=== PATIENT | male | born 1950 | race Caucasian/White ===

== ENCOUNTER 2017-08-26 13:26 | Emergency (ER) | payer MEDICARE, OTHER ==
[2017-08-26] MEDS: KETOROLAC 30 MG/ML VIAL (J1885) IM (14:01)
== END 2017-08-26 15:15 | disposition home or self-care (01) ==
LOC: M ED 13:26
DX: S30.0XXA Contusion of lower back and pelvis, initial encounter (principal); W00.9XXA Unspecified fall due to ice and snow, initial encounter; Y92.9 Unspecified place or not applicable; Y93.9 Activity, unspecified; M51.36 Other intervertebral disc degeneration, lumbar region; E78.00 Pure hypercholesterolemia, unspecified; I10 Essential (primary) hypertension; F41.9 Anxiety disorder, unspecified; F32.9 Major depressive disorder, single episode, unspecified; F43.10 Post-traumatic stress disorder, unspecified
CPT/HCPCS: J1885

== ENCOUNTER 2021-03-31 17:34 | Emergency (ER) | payer MEDICARE ==
[~2021-03-31] VITALS: Ht 165.1 cm; Wt 76.8 kg
[~2021-03-31 17:34] MED LIST: ALPR0.5T3 PO; AMIT25TA17; AMLO1TAB24; BYST5TAB PO; CRES5TAB PO; DOXE1CAP8 PO; IBUP-1022 PO; LYRI20SO PO; METO50TA7; OLAN5TAB GT; PRAV40TA2; TRAZ50TA2 PO; TYLE325T5 PO
[2021-03-31 17:35] VITALS: BP 155/75
== END 2021-03-31 22:36 | disposition left against medical advice (07) ==
LOC: M ED 17:34
DX: Z53.21 Procedure and treatment not carried out due to patient leaving prior to being seen by health care provider (principal)

== ENCOUNTER 2021-07-14 21:53 | Observation (INO) | payer MEDICARE ==
[~2021-07-14] VITALS: Ht 165.1 cm; Wt 78.1 kg
[2021-07-14 22:14] LABS: HEMATOCRIT 41.2 % (42.0-52.0); HEMOGLOBIN 13.1 g/dl (13.5-17.5); MEAN CORPUSCULAR HGB CONC 31.8 g/dl (32.0-36.5); MEAN CORPUSCULAR VOLUME 84.8 fl (80.0-96.0); PLATELET COUNT, AUTOMATED 241 10^3/uL (150-450); RED BLOOD COUNT 4.86 10^6/uL (4.30-6.10); WHITE BLOOD COUNT 11.2 10^3/uL (4.0-10.0)
[2021-07-14 22:44] LABS: CK-MB VALUE MASS 8.4 NG/ML (<3.6); MB/CK RELATIVE INDEX 3.49 (< OR =4)
[2021-07-14 22:49] LABS: ALBUMIN 3.6 GM/DL (3.2-5.2); BILIRUBIN,DIRECT 0.1 MG/DL (0.0-0.2); BILIRUBIN,TOTAL 0.3 MG/DL (0.2-1.0); CALCIUM LEVEL 8.3 MG/DL (8.8-10.2); CREATININE FOR GFR 1.89 MG/DL (0.70-1.30); FREE T4 0.88 NG/DL (0.76-1.46); GLOMERULAR FILTRATION RATE 37.6 (>42); MAGNESIUM LEVEL 1.4 MG/DL (1.8-2.4); PHOSPHORUS LEVEL 3.5 MG/DL (2.5-4.9); POTASSIUM SERUM 4.6 MEQ/L (3.5-5.1); THYROID STIMULATING HORMONE 2.09 uIU/ML (0.358-3.740); TOTAL PROTEIN 6.6 GM/DL (6.4-8.2)
[2021-07-14] MEDS ORDERED: MAGNESIUM OXIDE 400MG TAB (MAG-OX) PO ONE (23:10)
--- NOTE | 2021-07-14 23:16 | REPVR ---
PROCEDURE INFORMATION: Exam: XR Chest Exam date and time: 07/14/2021 10:00 PM Age: 70 years old Clinical indication: Other: Chest pain TECHNIQUE: Imaging protocol: XR of the chest. Views: 1 view. COMPARISON: No relevant prior studies available. FINDINGS: Lungs: Unremarkable. No consolidation. Pleural spaces: Unremarkable. No pleural effusion. No pneumothorax. Heart/Mediastinum: Unremarkable. No cardiomegaly. Vasculature: Aortic calcification. Bones/joints: Osteopenia. There are degenerative changes involving the spine. IMPRESSION: No acute cardiopulmonary process. Electronically signed by: Greg Quarles On 07/14/2021 23:15:40 PM
[2021-07-14 23:19] LABS: ATYPICAL LYMPH 2 % (0-5); BASOPHILS 1 % (0-1); EOSINOPHILS 5 % (0-3); LYMPHOCYTES 20 % (16-44); MONOCYTES 5 % (0-5); NEUTROPHILS 67 % (28-66); PLATELET ESTIMATE NORMAL (NORMAL)
[2021-07-15] MEDS ORDERED: METOPROLOL TART 25 MG TABLET PO STA (00:12)
[2021-07-15] MEDS ORDERED: DOXY100C3 PO (00:15)
[2021-07-15] MEDS ORDERED: AMLO1TAB24 PO (00:15)
[2021-07-15] MEDS ORDERED: PRAV40TA2 PO (00:15)
[2021-07-15] MEDS ORDERED: METO50TA7 PO (00:15)
[2021-07-15] MEDS ORDERED: AMIT25TA17 PO (00:15)
[2021-07-15] MEDS ORDERED: DOXY100T PO (00:15)
[2021-07-15] MEDS ORDERED: MAG SULF 1GM/100ML (MAG RUN) 1 GM in IV 1 EA IV ONE (00:15)
[2021-07-15] MEDS ORDERED: HYDR-4517 PO (00:16)
[2021-07-15] MEDS ORDERED: HOME MED LIST COMPLETE! XX SCH (00:20)
[2021-07-15] MEDS: NS 1,000 ML IV SCH ×2 (00:33→14:01)
--- NOTE | 2021-07-15 00:38 | HPEPDOC ---
General Date of Admission Date of Service: Jul 14, 2021 Chief Complaint Heaviness in the chest Source: Patient History of Present Illness Mr. Rose, a 70-year-old gentleman was in his usual state of health until yesterday afternoon. At about 5 PM, he started munching on potato chips with salt. A large bag full of potato chips were consumed until he was having heaviness in the chest at about 6 PM. Thereafter, he called his daughter who came to see him. Daughter noted that patient had high heart rate. EMS, on arrival, noted supraventricular tachycardia on EKG. He was given 6 mg of adenosine with which there was no response. He responded to 12 mg advancing in the field with conversion to normal sinus rhythm. He states that the heaviness in the chest disappeared later but it lasted for about an hour prior to EMS arrival. He does not have past history of coronary artery disease. He does not use aspirin. He has had a history of cerebrovascular event when he was young. He does not abuse tobacco or alcohol. He does not have past history of supraventricular tachycardia or any other tachyarrhythmia. He does not have cough, shortness of breath, leg swelling, hemoptysis, abdominal pain, nausea, vomiting, diarrhea, blood in the stool, black stools, burning in the urine, frequency of micturition, blood in the urine, skin rash, joint pains, blurry vision, weakness of extremities, dizziness or lightheadedness, symptoms of cold or sore throat. Home Medications Scheduled Amitriptyline HCl (Amitriptyline HCl) 25 Mg Tablet, 50 MG PO QHS, (Reported) Amlodipine Besylate (Amlodipine Besylate) 5 Mg Tablet, 5 MG PO DAILY, (Reported) Doxycycline Hyclate (Doxycycline Hyclate) 100 Mg Capsule, 100 MG PO DAILY, (Reported) Metoprolol Tartrate (Metoprolol Tartrate) 50 Mg Tablet, 50 MG PO BID, (Reported) Pravastatin Sodium (Pravastatin Sodium) 40 Mg Tablet, 40 MG PO DAILY, (Reported) Scheduled PRN Hydrocodone/Acetaminophen (Hydrocodone-Acetamin 10-325 mg) 1 Each Tablet, 1 TAB PO Q4H PRN for MODERATE/SEVERE PAIN (PS 5-10), (Reported) Allergies Coded Allergies: No Known Allergies (Unverified , 03/31/21) Past Medical History Medical History Hypertension Surgical History None Family History No history of premature coronary artery disease in the family Social History * Smoker: Denies Drugs: other (He uses marijuana intermittently.) A-FIB/CHADSVASC A-FIB History Current/History of A-Fib/PAF?: No Current PO Anticoag Therapy: No Review of Systems Other systems Review of systems: 10 system review negative except as mentioned in history of present illness. Physical Examination General Exam: Negative: Alert, Cooperative, No Acute Distress, Mild Distress, Moderate Distress, Severe Distress, Other Eye Exam: Negative: PERRLA, Conjunctiva & lids normal, EOMI, Sclera icteric, Ptosis, Other Eye Symptoms ENT Exam: Negative: Atraumatic, Mucous membr. moist/pink, Pharynx Normal, Tongue Midline, Pharyngeal Edema, Nares Patent, Tympanic Membranes Normal, Ext Auditory Canal Nml, Pinna Normal, Other ENT Neck Exam: Negative: Supple, JVD, thyromegaly, +2 carotid pulse wo bruit, Lymphadenopathy, Other Chest Exam: Negative: Clear to auscultation, Normal air movement, Rales, Rhonchi, Wheezing, Diminished, Other Heart Exam: Positive: Tachycardic, Normal S1, Normal S2 Abdomen Exam: Negative: Normal bowel sounds, BS Hyperactive, BS Hypoactive, Soft, Tenderness, Hepatospenomegaly, Mass, Hernia, Other Extremity Exam: Negative: Clubbing, Cyanosis, Edema, Normal pulses, Tenderness, Swelling, Other Skin Exam: Negative: Nl turgor and temperature, Rash, Breakdown, Lesion, Pruritus, Other skin issue Neuro Exam: Negative: Normal Gait, Normal Speech, Strength at 5/5 X4 ext, Normal Tone, Sensation Intact, Cranial Nerves 3-12 NL, Reflexes 2+, Other Psych Exam: Negative: Mental status NL, Mood NL, Anxiety, Memory Intact, Oriented x 3, Other Vital Signs Vital Signs Date Time Temp Pulse Resp B/P (MAP) Pulse Ox O2 Delivery O2 Flow Rate FiO2 07/14/21 22:04 97.9 108 29 151/106 (121) 95 Room Air Laboratory Data Labs 24H Laboratory Tests 2 07/14/21 22:09: Neutrophils (%) (Auto) , Nucleated Red Blood Cells % (auto) 0.0, Neutrophils 67H, Lymphocytes (Manual) 20, Monocytes (Manual) 5, Eosinophils (Manual) 5H, Basophils (Manual) 1, Atypical Lymphocytes 2, Platelet Estimate NORMAL, Anion Gap 8, Glomerular Filtration Rate 37.6L, Calcium Level 8.3L, Phosphorus Level 3.5, Magnesium Level 1.4L, Total Bilirubin 0.3, Direct Bilirubin 0.1, Aspartate Amino Transf (AST/SGOT) 47H, Alanine Aminotransferase (ALT/SGPT) 47, Alkaline Phosphatase 95, Total Creatine Kinase 241, Creatine Kinase MB 8.4H, Creatine Kinase MB Relative Index 3.49, Troponin I High Sensitivity 37.0, Total Protein 6.6, Albumin 3.6, Albumin/Globulin Ratio 1.2, Lipase 165, Thyroid Stimulating Hormone (TSH) 2.090, Free Thyroxine 0.88 CBC/BMP Laboratory Tests 07/14/21 22:09 Assessment/Plan Supraventricular tachycardia Episode probably provoked by large salt load in the form of consumption of bagful of potato chips. Responded to 6 +12 mg of adenosine in the field. Sinus tachycardia in the emergency department. EKG: No delta waves. No past history of SVT. Discussed with cardiology: To be started on metoprolol now. Continuous telemetry monitoring at present. Magnesium to be replenished. Acute kidney injury Baseline creatinine not available. Current creatinine of 1.89 possibly new increase. Continuous IV fluid at modest rate at present. Kidney function to be monitored. Hypomagnesemia Magnesium sulfate were administered parenterally and orally. Hypertension Metoprolol to continue. DVT prophylaxis [Low risk] Coronavirus screening SARS COV 2 PCR test ordered. CPR status Full code Plan / VTE VTE Prophylaxis Ordered?: No VTE Exclusion Mechanical Proph: Low Risk for VTE VTE Exclusion Pharmacological: At Low Risk for VTE Kiko Concepcion Jul 15, 2021 00:38
[2021-07-15] MEDS ORDERED: LORazepam 2 MG/ML VIAL IV STA (02:51)
[2021-07-15] MEDS ORDERED: LORazepam 2 MG/ML VIAL As Ordered ONE (03:09)
[2021-07-15 03:13] LABS: RSV AMPLIFICATION NEGATIVE (NEGATIVE)
--- NOTE | 2021-07-15 06:44 | ECGEPIP ---
[facility] - ED Test Date: 2021-07-14 Pat Name: SAJAN AMADO Department: Room: 0102 Gender: Male [employer] Operator: KIET : 1950 Requested By: BEV Grace Order Number: [id number] Reading MD: Zackary Nicole Measurements Intervals Neon Rate: 106 P: 15 SC: 98 QRS: -23 QRSD: 86 T: 55 QT: 326 QTc: 433 Interpretive Statements Sinus tachycardia with short SC Septal infarct , age undetermined NO PRIORS FOR COMPARISON Electronically Signed on 07-15-2021 6:44:14 EST by Zackary Nicole
[2021-07-15 07:31] LABS: CALCIUM LEVEL 8.5 MG/DL (8.8-10.2); CREATININE FOR GFR 1.44 MG/DL (0.70-1.30); GLOMERULAR FILTRATION RATE 51.5 (>42); MAGNESIUM LEVEL 2.1 MG/DL (1.8-2.4); POTASSIUM SERUM 4.6 MEQ/L (3.5-5.1)
[2021-07-15] MEDS ORDERED: METOPROLOL TART 50 MG TAB PO SCH (09:00)
--- NOTE | 2021-07-15 14:41 | REP ---
INDICATION: renal failure. COMPARISON: None. TECHNIQUE: Real-time sonographic evaluation of the kidneys is performed. FINDINGS: Renal cortical echotexture is somewhat increased suggesting medical renal disease. There is no hydronephrosis bilaterally. There is a hypoechoic nodular area along the mid right renal cortex 1.5 cm in diameter with an internal echogenic focus. This could represent a solid nodule. There is a cystic structure in the mid left kidney with an internal echogenic focus. This measures 1.4 cm. The right kidney measures 10.6 x 5.2 x 6.0 cm. Left renal dimensions are 11.7 x 4.7 x 5.8 cm. The urinary bladder is unremarkable. IMPRESSION: Increased cortical echotexture bilaterally. No hydronephrosis bilaterally. Possible solid mid right renal nodule, with a possible small internal calcification, measuring 1.5 cm in diameter. There appears to be a mid left renal cyst 1.4 cm containing a small calcification. <Electronically signed by Rod Alarcon > 07/15/21 [id number]
[2021-07-15 16:25] VITALS: BP 134/82
--- NOTE | 2021-07-15 23:01 | DSES ---
DISCHARGE SUMMARY DATE OF ADMISSION: 07/14/2021 DATE OF DISCHARGE: 07/15/2021 PRIMARY DISCHARGE DIAGNOSIS: 1. Supraventricular tachycardia. 2. Acute on chronic kidney injury with baseline creatinine of 1.3 to 1.5, chronic kidney disease stage III. 3. Hypertension. 4. Dyslipidemia. DISCHARGE MEDICATIONS: Metoprolol 50 mg twice a day, pravastatin 40 mg daily, doxycycline 100 mg daily, Norvasc 5 mg daily, nortriptyline 50 mg every night at bedtime. DISCHARGE INSTRUCTIONS: Follow up with primary care physician within five days. The patient is to have a referral to an watch inspector final movement in [place] and workers' compensation claims supervisor in [place] regarding supraventricular tachycardia (SVT) for further evaluation. Avoid nonsteroidal anti-inflammatories due to recent acute kidney injury. Creatinine has improved with IV fluids to 1.44. HOSPITAL COURSE: This is a 70-year-old male with a history of hypertension, chronic kidney disease, stage III, baseline creatinine 1.3 to 1.5, was in his usual state of health until he had some potato chips at home and then complained of palpitations, lightheadedness and dizziness and substernal chest pain. The patient denied any lower extremity pain, pleuritic chest pain, nausea, vomiting or diarrhea. In the emergency room, he was found to have supraventricular tachycardia and was given on the field one dose of 6 mg of adenosine with no improvement, an additional 12 mg on arrival to the emergency room. Electrocardiogram (EKG) had no delta waves. He was in sinus tachycardia. This was discussed with cardiology and the patient was started on metoprolol 50 mg twice a day which resulted in improvement his tachycardia to ventricular rate of 72 to 86. The patient's blood pressure was well maintained with mean arterial pressure greater than 90, at the bedside is 102 MAP. The patient is asymptomatic, no complaints of chest pain, pressure or tightness, lightheadedness or dizziness. He was given intravenous fluids at 75 mL an hour with resultant improvement in creatinine from 1.8 to 1.44, which is his baseline. Glomerular filtration rate (GFR) is 51.5, remains at stage III renal failure. Chest x-ray 07/15/2021 showed no acute cardiopulmonary process. Renal ultrasound pending official report. The patient is otherwise medically stable for discharge with recommendations to be referred to electrophysiology regarding supraventricular tachycardia for possible ablation. The patient has had no syncopal episode to suggest need for Holter monitor or [facility] monitor as outpatient. PHYSICAL EXAMINATION ON DISCHARGE: Temperature 97.8, pulse 86, respiratory rate 19, blood pressure 133/87, 97% on room air. General: The patient is awake, alert and oriented to person, place and time answering questions appropriately. No cyanosis. Speaks in full sentences. Disheveled with dry mucous membranes. No jugular venous distention (JVD), thyromegaly or cervical lymphadenopathy. He does not have any stridor on examination. Lungs are clear to auscultation without wheezes, rales or rhonchi. Air entry is equal. Inspiratory and expiratory ratio 1:2 with no adventitious breath sounds. Heart: S1, S2, nondisplaced PMI. No S3. No murmurs noted. No heaves. Abdomen is obese, nontender and non-distended. Positive bowel sounds. Extremities: No cyanosis, clubbing or pitting edema. Neurologically, awake, alert and oriented. Motor functions 5/5 in all four extremities with no paresthesias or sensory disturbance. Gait was not tested. LABORATORY DATA: Microbiology and imaging studies have been reviewed. Time spent on discharge 30 minutes.
== END 2021-07-15 17:20 | disposition home or self-care (01) ==
LOC: M ED 21:53 → M ED INP 21:54
PROVIDERS: ADMIT Internal Medicine; ATTEND Internal Medicine
DX: I47.1 Supraventricular tachycardia (principal); N17.9 Acute kidney failure, unspecified; N18.30 Chronic kidney disease, stage 3 unspecified; I12.9 Hypertensive chronic kidney disease with stage 1 through stage 4 chronic kidney disease, or unspecified chronic kidney disease; E78.5 Hyperlipidemia, unspecified; E83.42 Hypomagnesemia; Z79.899 Other long term (current) drug therapy
CPT/HCPCS: 36415; 71045; 76775; 80048; 80076; 82550; 82553; 83690; 83735; 84100; 84439; 84443; 84484; 85025; 87631; 93005; 93041; 94760; 96374; 96375; 96376; 99285; G0378; J2060; J3475

== ENCOUNTER 2021-12-25 00:51 | Emergency (ER) | payer MEDICARE ==
[~2021-12-25] VITALS: Ht 165.1 cm; Wt 74.9 kg
[~2021-12-25 00:51] MED LIST changes: +AMIT25TA17 PO; +AMLO1TAB24 PO; +DOXY100C3 PO; +DOXY100T PO; +HYDR-4517 PO; +METO50TA7 PO; +PRAV40TA2 PO
[2021-12-25 01:29] LABS: BASO % 0.3 % (0.0-1.0); EOS # 0.3 10^3/uL (0.0-0.5); EOS % 3.2 % (0.0-3.0); HEMOGLOBIN 15.9 g/dl (13.5-17.5); LYMPH % 30.1 % (24.0-44.0); MEAN CORPUSCULAR HEMOGLOBIN 28.1 pg (27.0-33.0); MEAN CORPUSCULAR HGB CONC 33.1 g/dl (32.0-36.5); MONO # 1.1 10^3/uL (0.0-0.8); MONO % 10.7 % (2.0-8.0); NEUTROPHILS # 5.4 10^3/uL (1.5-8.5); NEUTROPHILS % 55.4 % (36.0-66.0); PLATELET COUNT, AUTOMATED 165 10^3/uL (150-450); RED BLOOD COUNT 5.65 10^6/uL (4.30-6.10); WHITE BLOOD COUNT 9.8 10^3/uL (4.0-10.0)
[2021-12-25 02:03] LABS: CK-MB VALUE MASS 2.2 NG/ML (<3.6); MB/CK RELATIVE INDEX 2.04 (< OR =4)
[2021-12-25 02:07] LABS: CALCIUM LEVEL 9.5 MG/DL (8.8-10.2); CREATININE FOR GFR 1.37 MG/DL (0.70-1.30); FREE T4 0.81 NG/DL (0.76-1.46); GLOMERULAR FILTRATION RATE 54.4 (>42); MAGNESIUM LEVEL 2.1 MG/DL (1.8-2.4); POTASSIUM SERUM 3.8 MEQ/L (3.5-5.1); THYROID STIMULATING HORMONE 7.31 uIU/ML (0.358-3.740)
[2021-12-25 02:15] VITALS: BP 135/77
== END 2021-12-25 02:37 | disposition left against medical advice (07) ==
LOC: M ED 00:51
DX: R07.9 Chest pain, unspecified (principal); R94.31 Abnormal electrocardiogram [ECG] [EKG]; I10 Essential (primary) hypertension; E78.5 Hyperlipidemia, unspecified; Z79.899 Other long term (current) drug therapy; Z53.21 Procedure and treatment not carried out due to patient leaving prior to being seen by health care provider

== ENCOUNTER 2022-01-02 07:24 | Emergency (ER) | payer MEDICARE ==
[~2022-01-02] VITALS: Ht 170.2 cm; Wt 75.0 kg
[2022-01-02] MEDS ORDERED: ASPIRIN 81 MG CHEW TABLET PO ONE (07:55)
[2022-01-02] MEDS ORDERED: METOPROLOL TART 50 MG TAB PO ONE (07:55)
[2022-01-02 08:26] LABS: BASO % 0.2 % (0.0-1.0); EOS # 0.2 10^3/uL (0.0-0.5); HEMATOCRIT 39.9 % (42.0-52.0); HEMOGLOBIN 13.2 g/dl (13.5-17.5); LYMPH # 1.1 10^3/uL (1.5-5.0); LYMPH % 13.3 % (24.0-44.0); MEAN CORPUSCULAR HGB CONC 33.1 g/dl (32.0-36.5); MEAN CORPUSCULAR VOLUME 84.7 fl (80.0-96.0); MONO # 0.6 10^3/uL (0.0-0.8); MONO % 7.3 % (2.0-8.0); NEUTROPHILS # 6.2 10^3/uL (1.5-8.5); NEUTROPHILS % 76.7 % (36.0-66.0); PLATELET COUNT, AUTOMATED 136 10^3/uL (150-450); RED BLOOD COUNT 4.71 10^6/uL (4.30-6.10); WHITE BLOOD COUNT 8.1 10^3/uL (4.0-10.0)
[2022-01-02 08:37] LABS: INR 0.9; PROTHROMBIN TIME 12.6 SECONDS (12.7-14.5)
[2022-01-02 08:38] LABS: PARTIAL THROMBOPLASTIN TIME 23.2 SECONDS (25.9-37.0)
[2022-01-02 08:56] LABS: CK-MB VALUE MASS 2.4 NG/ML (<3.6); MB/CK RELATIVE INDEX 4.07 (< OR =4)
[2022-01-02 08:58] LABS: RSV AMPLIFICATION NEGATIVE (NEGATIVE)
[2022-01-02 09:02] LABS: ALBUMIN 3.3 GM/DL (3.2-5.2); BILIRUBIN,DIRECT 0.1 MG/DL (0.0-0.2); BILIRUBIN,TOTAL 0.3 MG/DL (0.2-1.0); CALCIUM LEVEL 8.8 MG/DL (8.8-10.2); CREATININE FOR GFR 1.28 MG/DL (0.70-1.30); GLOMERULAR FILTRATION RATE 58.8 (>42); MAGNESIUM LEVEL 1.9 MG/DL (1.8-2.4); POTASSIUM SERUM 3.4 MEQ/L (3.5-5.1); THYROID STIMULATING HORMONE 2.63 uIU/ML (0.358-3.740); TOTAL PROTEIN 6.3 GM/DL (6.4-8.2)
[2022-01-02 09:43] LABS: CK-MB VALUE MASS 2.2 NG/ML (<3.6); MB/CK RELATIVE INDEX 3.86 (< OR =4)
[2022-01-02] MEDS ORDERED: HEPARIN SOD (PORCINE) 5000UNITS/ML 1ML VIAL/SYRINGE IV ONE (10:00)
[2022-01-02] MEDS ORDERED: HEPARIN DRIP 25,000 UNITS in IV 1 EA IV SCH ×2 (10:00→15:15)
[2022-01-02 11:57] LABS: MB/CK RELATIVE INDEX 8.62 (< OR =4)
[2022-01-02] MEDS ORDERED: LORazepam 1 MG TAB PO ONE (14:55)
[2022-01-02] MEDS ORDERED: HEPARIN SOD (PORCINE) 5000UNITS/ML 1ML VIAL/SYRINGE IV PRN (15:15)
[2022-01-02] MEDS ORDERED: LORazepam 1 MG TAB PO PRN (19:10)
[2022-01-02] MEDS: METOPROLOL TART 25 MG TABLET PO SCH (19:14)
[2022-01-02] MEDS ORDERED: PRAVASTATIN 20 MG TAB PO SCH (21:00)
[2022-01-03] MEDS: METOPROLOL TART 25 MG TABLET PO SCH ×2 (00:40→06:32)
[2022-01-03 06:32] VITALS: BP 175/92
[2022-01-03 09:24] VITALS: BP 194/88
== END 2022-01-03 09:25 | disposition short-term general hospital (02) ==
LOC: M ED 07:24 → EDBD 07:24 → M ED 01-03 09:25
DX: I21.4 Non-ST elevation (NSTEMI) myocardial infarction (principal); R94.31 Abnormal electrocardiogram [ECG] [EKG]; I10 Essential (primary) hypertension; Z79.899 Other long term (current) drug therapy; Z79.2 Long term (current) use of antibiotics
CPT/HCPCS: 71045; 80048; 80076; 82550; 82553; 83690; 83735; 83880; 84443; 84484; 85025; 85610; 85730; 87631; 93005; 93041; 94760; 96365; 96366; 96375; 99285; J1644

== ENCOUNTER → 2022-01-26 | Outpatient (CLI) | payer MEDICARE ==
[2022-01-26 16:39] LABS: CALCIUM LEVEL 9.3 MG/DL (8.8-10.2); CREATININE FOR GFR 1.26 MG/DL (0.70-1.30); GLOMERULAR FILTRATION RATE 59.9 (>42); POTASSIUM SERUM 4.4 MEQ/L (3.5-5.1)
[2022-01-26 16:47] LABS: HEMATOCRIT 33.6 % (42.0-52.0); HEMOGLOBIN 10.4 g/dl (13.5-17.5); MEAN CORPUSCULAR HEMOGLOBIN 27.2 pg (27.0-33.0); MEAN CORPUSCULAR VOLUME 87.7 fl (80.0-96.0); PLATELET COUNT, AUTOMATED 307 10^3/uL (150-450); RED BLOOD COUNT 3.83 10^6/uL (4.30-6.10); WHITE BLOOD COUNT 9.3 10^3/uL (4.0-10.0)
== END ==
LOC: M WUC 13:33
PROVIDERS: ATTEND Physician Assistant
DX: I21.4 Non-ST elevation (NSTEMI) myocardial infarction (principal)

== ENCOUNTER 2022-01-28 20:14 | Emergency (ER) | payer MEDICARE ==
[~2022-01-28] VITALS: Ht 165.1 cm; Wt 70.7 kg
[2022-01-28 21:24] LABS: BASO % 0.3 % (0.0-1.0); EOS # 0.5 10^3/uL (0.0-0.5); EOS % 5.6 % (0.0-3.0); HEMATOCRIT 29.4 % (42.0-52.0); HEMOGLOBIN 9.2 g/dl (13.5-17.5); LYMPH # 1.7 10^3/uL (1.5-5.0); LYMPH % 18.7 % (24.0-44.0); MEAN CORPUSCULAR HEMOGLOBIN 27.3 pg (27.0-33.0); MEAN CORPUSCULAR HGB CONC 31.3 g/dl (32.0-36.5); MEAN CORPUSCULAR VOLUME 87.2 fl (80.0-96.0); MONO # 0.9 10^3/uL (0.0-0.8); NEUTROPHILS % 65.1 % (36.0-66.0); PLATELET COUNT, AUTOMATED 235 10^3/uL (150-450); RED BLOOD COUNT 3.37 10^6/uL (4.30-6.10); WHITE BLOOD COUNT 9.2 10^3/uL (4.0-10.0)
[2022-01-28 21:35] LABS: INR 0.97; PROTHROMBIN TIME 13.3 SECONDS (12.7-14.5)
[2022-01-28 21:36] LABS: PARTIAL THROMBOPLASTIN TIME 37.5 SECONDS (25.9-37.0)
[2022-01-28 21:49] LABS: CK-MB VALUE MASS 2.4 NG/ML (<3.6); MB/CK RELATIVE INDEX 6.32 (< OR =4)
[2022-01-28 21:56] LABS: ALBUMIN 2.9 GM/DL (3.2-5.2); ALT/SGPT 25 U/L (12-78); BILIRUBIN,DIRECT < 0.1 MG/DL (0.0-0.2); BILIRUBIN,TOTAL 0.2 MG/DL (0.2-1.0); BLOOD UREA NITROGEN 17 MG/DL (7-18); CALCIUM LEVEL 8.2 MG/DL (8.8-10.2); CARBON DIOXIDE LEVEL 22 MEQ/L (21-32); CHLORIDE LEVEL 116 MEQ/L (98-107); CREATININE FOR GFR 1.38 MG/DL (0.70-1.30); FREE T4 0.66 NG/DL (0.76-1.46); GLOMERULAR FILTRATION RATE 53.9 (>42); GLUCOSE, FASTING 110 MG/DL (70-100); NT-PRO BNP 1682 PG/ML (<125); POTASSIUM SERUM 3.9 MEQ/L (3.5-5.1); SODIUM LEVEL 146 MEQ/L (136-145); TOTAL PROTEIN 5.8 GM/DL (6.4-8.2)
[2022-01-28] MEDS ORDERED: ISOVUE-370 76% 100ML VIAL As Ordered ONE (22:32)
[2022-01-28] MEDS ORDERED: PRIL20TA2 PO (23:02)
[2022-01-28] MEDS ORDERED: XANA0.25 PO (23:03)
[2022-01-28] MEDS ORDERED: COLA100C5 PO (23:05)
[2022-01-28] MEDS ORDERED: PLAV1TAB2 PO (23:05)
[2022-01-28] MEDS ORDERED: FERR324T21 PO (23:06)
[2022-01-28 23:12] LABS: CK-MB VALUE MASS 2.4 NG/ML (<3.6); MB/CK RELATIVE INDEX 8.57 (< OR =4)
[2022-01-28] MEDS ORDERED: FERR324T2 PO (23:17)
[2022-01-29 01:22] LABS: CK-MB VALUE MASS 2.4 NG/ML (<3.6); MB/CK RELATIVE INDEX 6.86 (< OR =4)
[2022-01-29 02:14] VITALS: BP 138/64
== END 2022-01-29 03:16 | disposition home or self-care (01) ==
LOC: M ED 20:14
DX: R22.41 Localized swelling, mass and lump, right lower limb (principal); R06.00 Dyspnea, unspecified; I25.2 Old myocardial infarction; I10 Essential (primary) hypertension; E78.5 Hyperlipidemia, unspecified; Z95.1 Presence of aortocoronary bypass graft; Z79.811 Long term (current) use of aromatase inhibitors; Z79.899 Other long term (current) drug therapy
CPT/HCPCS: 36415; 71046; 71275; 80048; 80076; 82550; 82553; 83880; 84439; 84443; 84484; 85025; 85610; 85730; 93005; 93041; 93970; 94760; 99285; Q9967

== ENCOUNTER 2022-08-19 18:34 | Emergency (ER) | payer MEDICARE ==
[~2022-08-19] VITALS: Ht 170.2 cm; Wt 82.0 kg
[~2022-08-19 18:34] MED LIST changes: +CLOP75TA99 PO; +COLA100C5 PO; +FERR324T2 PO; +FERR324T21 PO; +PRIL20TA2 PO; +XANA0.25 PO
[2022-08-19 20:17] LABS: BASO % 0.2 % (0.0-1.0); EOS % 0.3 % (0.0-3.0); HEMATOCRIT 33.4 % (42.0-52.0); HEMOGLOBIN 10.7 g/dl (13.5-17.5); LYMPH # 0.7 10^3/uL (1.5-5.0); LYMPH % 6.8 % (24.0-44.0); MEAN CORPUSCULAR HEMOGLOBIN 27.4 pg (27.0-33.0); MEAN CORPUSCULAR VOLUME 85.4 fl (80.0-96.0); MONO # 0.5 10^3/uL (0.0-0.8); MONO % 5.5 % (2.0-8.0); NEUTROPHILS # 8.5 10^3/uL (1.5-8.5); NEUTROPHILS % 86.8 % (36.0-66.0); PLATELET COUNT, AUTOMATED 136 10^3/uL (150-450); RED BLOOD COUNT 3.91 10^6/uL (4.30-6.10); WHITE BLOOD COUNT 9.8 10^3/uL (4.0-10.0)
[2022-08-19 20:44] LABS: ETHYL ALCOHOL (ETHANOL) 0.004 % (0.000-0.010)
[2022-08-19 20:45] LABS: ALBUMIN 3.2 G/DL (3.2-5.2); BILIRUBIN,DIRECT 0.1 MG/DL (<0.4); BILIRUBIN,TOTAL 0.3 MG/DL (0.3-1.2); CALCIUM LEVEL 8.5 MG/DL (8.3-10.6); CREATININE FOR GFR 1.56 MG/DL (0.70-1.30); GLOMERULAR FILTRATION RATE 46.8 (>42); POTASSIUM SERUM 4.5 MMOL/L (3.5-5.1); TOTAL PROTEIN 5.6 G/DL (5.7-8.2)
[2022-08-19 20:47] LABS: THYROID STIMULATING HORMONE 2.525 uIU/ML (0.55-4.78)
[2022-08-19 23:40] LABS: CK-MB VALUE MASS 1.5 NG/ML (<3.6)
[2022-08-19 23:41] LABS: MB/CK RELATIVE INDEX 2.2 (< OR =4)
[2022-08-20] VITALS: BP 132/63
== END 2022-08-20 00:42 | disposition home or self-care (01) ==
LOC: M ED 18:34
DX: T88.7XXA Unspecified adverse effect of drug or medicament, initial encounter (principal); R53.83 Other fatigue; I44.4 Left anterior fascicular block; I45.10 Unspecified right bundle-branch block; I10 Essential (primary) hypertension; K21.9 Gastro-esophageal reflux disease without esophagitis; E78.5 Hyperlipidemia, unspecified; I25.2 Old myocardial infarction; Z86.79 Personal history of other diseases of the circulatory system; Z79.01 Long term (current) use of anticoagulants; Z79.52 Long term (current) use of systemic steroids; Z79.899 Other long term (current) drug therapy; Z79.83 Long term (current) use of bisphosphonates
CPT/HCPCS: 36415; 70450; 71045; 80048; 80076; 82077; 82140; 82375; 82550; 82553; 84443; 84484; 85025; 93005; 93041; 94760; 99285; G0480

== ENCOUNTER → 2022-08-22 | Outpatient (CLI) | payer MEDICARE ==
[2022-08-22 17:04] LABS: APPEARANCE, URINE MANUAL CLEAR (CLEAR); BILIRUBIN, URINE MANUAL NEGATIVE (NEGATIVE); BLOOD URINE MANUAL NEGATIVE (NEGATIVE); COLOR, URINE MANUAL YELLOW (YELLOW); GLUCOSE, URINE (UA) MANUAL NEGATIVE (NEGATIVE); KETONE, URINE MANUAL NEGATIVE (NEGATIVE); LEUKOCYTE ESTERASE, URINE MAN NEGATIVE (NEGATIVE); NITRITE, URINE MANUAL NEGATIVE (NEGATIVE); PROTEIN, URINE MANUAL TRACE mg/dL (NEGATIVE); SPECIFIC GRAVITY,URINE MANUAL 1.025 (1.002-1.035); UROBILINOGEN, URINE MANUAL NORMAL (NORMAL)
[2022-08-22 17:17] LABS: RED BLOOD COUNT 4.55 10^6/uL (4.30-6.10); WHITE BLOOD COUNT 8.2 10^3/uL (4.0-10.0)
[2022-08-22 17:18] LABS: HEMATOCRIT 40.2 % (42.0-52.0); HEMOGLOBIN 12.4 g/dl (13.5-17.5); MEAN CORPUSCULAR HEMOGLOBIN 27.3 pg (27.0-33.0); MEAN CORPUSCULAR HGB CONC 30.8 g/dl (32.0-36.5); MEAN CORPUSCULAR VOLUME 88.4 fl (80.0-96.0); PLATELET COUNT, AUTOMATED 174 10^3/uL (150-450)
[2022-08-22 17:20] LABS: BACTERIA, URINE SMALL AMOUNT; MUCUS, URINE SMALL AMOUNT (NEGATIVE); RBC, URINE 0-1 /hpf (0-3); SQUAMOUS EPITHELIAL CELL URINE SMALL AMOUNT /hpf (SMALL AMT)
[2022-08-22 17:59] LABS: ALBUMIN 3.9 G/DL (3.2-5.2); BILIRUBIN,TOTAL 0.4 MG/DL (0.3-1.2); CALCIUM LEVEL 9.2 MG/DL (8.3-10.6); CHOLESTEROL RISK RATIO 4.83 (<5); CREATININE FOR GFR 1.41 MG/DL (0.70-1.30); GLOMERULAR FILTRATION RATE 52.6 (>42); LDL CHOLESTEROL 96.8 MG/DL (<100); POTASSIUM SERUM 4.6 MMOL/L (3.5-5.1); PROSTATIC SPECIFIC AG MONITOR 2.08 NG/ML (< 4.00); THYROID STIMULATING HORMONE 2.31 uIU/ML (0.55-4.78); TOTAL PROTEIN 6.7 G/DL (5.7-8.2)
== END ==
LOC: M WUC 14:19
PROVIDERS: ATTEND Family Medicine
DX: I10 Essential (primary) hypertension (principal); E03.9 Hypothyroidism, unspecified; R53.83 Other fatigue; Z79.899 Other long term (current) drug therapy

== ENCOUNTER → 2022-12-15 | Outpatient (REF) | payer MEDICARE ==
[2022-12-15 17:30] LABS: CREATININE FOR GFR 1.35 MG/DL (0.70-1.30); GLOMERULAR FILTRATION RATE 55.2 (>42)
== END ==
LOC: M LABWUC 16:18
PROVIDERS: ATTEND Otolaryngology
DX: J38.01 Paralysis of vocal cords and larynx, unilateral (principal); R13.13 Dysphagia, pharyngeal phase; C32.9 Malignant neoplasm of larynx, unspecified

== ENCOUNTER → 2022-12-16 | Outpatient (CLI) | payer MEDICARE ==
[~2022-12-16] MED LIST changes: +ISOVUE-370 76% 100ML VIAL As Ordered ONE
== END ==
LOC: M RAD 14:54
PROVIDERS: ATTEND Otolaryngology
DX: J38.01 Paralysis of vocal cords and larynx, unilateral (principal); C32.9 Malignant neoplasm of larynx, unspecified; R13.13 Dysphagia, pharyngeal phase
CPT/HCPCS: 71260; Q9967

== ENCOUNTER → 2022-12-29 | Outpatient (CLI) | payer MEDICARE | LOC: M RAD 10:12 | PROVIDERS: ATTEND Otolaryngology | DX: J38.01 Paralysis of vocal cords and larynx, unilateral (principal); R13.13 Dysphagia, pharyngeal phase | CPT/HCPCS: 70491; Q9967 ==

== ENCOUNTER → 2023-11-22 | Outpatient (CLI) | payer MEDICARE ==
[~2023-11-22] MED LIST changes: -AMIT25TA17; -AMIT25TA17 PO; +AMIT25TA19; +AMIT25TA19 PO; -ISOVUE-370 76% 100ML VIAL As Ordered ONE
[2023-11-22 07:42] LABS: HEMATOCRIT 41.1 % (42.0-52.0); HEMOGLOBIN 13.5 g/dl (13.5-17.5); MEAN CORPUSCULAR HEMOGLOBIN 27.7 pg (27.0-33.0); MEAN CORPUSCULAR HGB CONC 32.8 g/dl (32.0-36.5); MEAN CORPUSCULAR VOLUME 84.2 fl (80.0-96.0); PLATELET COUNT, AUTOMATED 104 10^3/uL (150-450); RED BLOOD COUNT 4.88 10^6/uL (4.30-6.10); WHITE BLOOD COUNT 6.8 10^3/uL (4.0-10.0)
[2023-11-22 08:06] LABS: ALBUMIN 3.1 G/DL (3.2-5.2); BILIRUBIN,TOTAL 0.5 MG/DL (0.3-1.2); CHOLESTEROL RISK RATIO 3.47 (<5); CREATININE FOR GFR 1.5 MG/DL (0.70-1.30); GLOMERULAR FILTRATION RATE 48.7 (>42); HDL CHOLESTEROL 30.5 MG/DL (>40); LDL CHOLESTEROL 56.5 MG/DL (<100); NON-HDL-C 75.5 MG/DL; POTASSIUM SERUM 4.2 MMOL/L (3.5-5.1); TOTAL PROTEIN 5.7 G/DL (5.7-8.2)
[2023-11-22 08:07] LABS: PROSTATIC SPECIFIC AG MONITOR 2.15 NG/ML (< 4.00)
[2023-11-22 08:11] LABS: THYROID STIMULATING HORMONE 3.512 uIU/ML (0.55-4.78)
[2023-11-22 08:12] LABS: TOTAL 25(OH) VITAMIN D 13.4 NG/ML (20.0-100.0)
[2023-11-22 08:39] LABS: HEMOGLOBIN A1c 5.4 % (4.0-6.0)
== END ==
LOC: M RAD 06:35
PROVIDERS: ATTEND Family Medicine
DX: I10 Essential (primary) hypertension (principal); R97.20 Elevated prostate specific antigen [PSA]

== ENCOUNTER → 2024-08-22 | Outpatient (CLI) | payer MEDICARE ==
[2024-08-22 10:50] LABS: HEMATOCRIT 42.2 % (42.0-52.0); MEAN CORPUSCULAR HEMOGLOBIN 27.6 pg (27.0-33.0); MEAN CORPUSCULAR HGB CONC 33.2 g/dl (32.0-36.5); MEAN CORPUSCULAR VOLUME 83.1 fl (80.0-96.0); PLATELET COUNT, AUTOMATED 182 10^3/uL (150-450); RED BLOOD COUNT 5.08 10^6/uL (4.30-6.10); WHITE BLOOD COUNT 12.3 10^3/uL (4.0-10.0)
[2024-08-22 11:19] LABS: ALBUMIN 3.9 G/DL (3.2-5.2); BILIRUBIN,TOTAL 0.6 MG/DL (0.3-1.2); CALCIUM LEVEL 9.7 MG/DL (8.3-10.6); CHOLESTEROL RISK RATIO 3.25 (<5); CREATININE FOR GFR 1.43 MG/DL (0.70-1.30); GLOMERULAR FILTRATION RATE 51.5 (>42); HDL CHOLESTEROL 34.1 MG/DL (>40); LDL CHOLESTEROL 56.7 MG/DL (<100); NON-HDL-C 76.9 MG/DL; POTASSIUM SERUM 4.2 MMOL/L (3.5-5.1); PROSTATIC SPECIFIC AG MONITOR 2.86 NG/ML (< 4.00); TOTAL PROTEIN 6.9 G/DL (5.7-8.2)
[2024-08-22 11:21] LABS: THYROID STIMULATING HORMONE 1.919 uIU/ML (0.55-4.78)
[2024-08-22 11:22] LABS: HEMOGLOBIN A1c 5.4 % (4.0-6.0)
== END ==
LOC: M RAD 09:32
PROVIDERS: ATTEND Family Medicine
DX: R53.83 Other fatigue (principal); E11.9 Type 2 diabetes mellitus without complications; J18.9 Pneumonia, unspecified organism; J44.0 Chronic obstructive pulmonary disease with (acute) lower respiratory infection; Z79.899 Other long term (current) drug therapy

== ENCOUNTER 2024-11-28 17:12 | Emergency (ER) | payer MEDICARE ==
[~2024-11-28] VITALS: Ht 165.1 cm; Wt 65.6 kg
[2024-11-28] MEDS: LIDOCAINE 1% MDV 20ML VIAL SC ONE (19:15)
[2024-11-28] MEDS: BOOSTRIX VACCINE (TETANUS/DIPHTH/ACEL. PERTUSSIS) 0.5ML SYR IM.IMMUN ONE (19:23)
[2024-11-28 20:25] VITALS: BP 171/82; TEMP 98; O2SAT 97
== END 2024-11-28 20:28 | disposition home or self-care (01) ==
LOC: M ED 17:12
DX: S61.210A Laceration without foreign body of right index finger without damage to nail, initial encounter (principal); S61.212A Laceration without foreign body of right middle finger without damage to nail, initial encounter; W31.2XXA Contact with powered woodworking and forming machines, initial encounter; I10 Essential (primary) hypertension; C14.0 Malignant neoplasm of pharynx, unspecified; F43.10 Post-traumatic stress disorder, unspecified; Z79.2 Long term (current) use of antibiotics; Z79.899 Other long term (current) drug therapy; Z23 Encounter for immunization; Y92.009 Unspecified place in unspecified non-institutional (private) residence as the place of occurrence of the external cause; Y93.89 Activity, other specified; Y99.9 Unspecified external cause status; Z79.01 Long term (current) use of anticoagulants

== ENCOUNTER 2025-02-07 08:27 | Emergency (ER) | payer MEDICARE ==
[~2025-02-07] VITALS: Ht 165.1 cm; Wt 66.1 kg
[~2025-02-07 08:27] MED LIST changes: -SERO1TAB PO
[2025-02-07 08:30] VITALS: BP 155/72; TEMP 97.1; O2SAT 98
[2025-02-07] MEDS ORDERED: SERO1TAB PO (08:31)
== END 2025-02-07 10:00 | disposition left against medical advice (07) ==
LOC: M ED 08:27
DX: Z53.21 Procedure and treatment not carried out due to patient leaving prior to being seen by health care provider (principal)

== ENCOUNTER → 2025-02-07 | Outpatient (CLI) | payer MEDICARE ==
[~2025-02-07] MED LIST changes: -PRAV40TA2; -PRAV40TA2 PO; +PRAV40TA85; +PRAV40TA85 PO; +SERO1TAB PO
== END ==
LOC: M SOG 06:58
PROVIDERS: ATTEND Physician Assistant
DX: S62.642 Nondisplaced fracture of proximal phalanx of right middle finger (principal)